=== PATIENT | female | born 1985 | race Two or more races ===

== ENCOUNTER 2017-01-04 08:42 | Outpatient (CLI) | payer BC ==
[2013-12-20 12:43] VITALS: O2SAT 100
== END 2017-01-04 08:43 | disposition home or self-care (01) ==
LOC: CONVCARE 08:42
PROVIDERS: ATTEND Orthopaedic Surgery
DX: M25.511 Pain in right shoulder (principal); M24.20 Disorder of ligament, unspecified site
CPT/HCPCS: 73030